=== PATIENT | male | born 1965 | race Caucasian/White ===

== ENCOUNTER 2021-05-18 13:22 | Outpatient (REF) | payer OTHER, SELFPAY ==
[2021-05-18 13:46] LABS: MANUAL DIFF FLAG NO
[2021-05-18 13:54] LABS: Basophils Percent Auto 0.3 % (0-2); Eosinophils Absolute Auto 0.2 X10*3/uL (0.0-0.4); Eosinophils Percent Auto 1.8 % (0-4); Hematocrit 42.8 % (42.0-52.0); Hemoglobin 13.9 g/dl (14.0-18.0); Imm Gran Abs Auto 0.02 X10*3/uL (0.00-0.03); Imm Gran Pct Auto 0.2 % (0.0-0.4); Lymphocytes Absolute Auto 2.6 X10*3/uL (1.2-4.9); Lymphocytes Percent Auto 30.4 % (20-40); Mean Corpuscular HGB Conc 32.5 g/dl (31.0-36.0); Mean Corpuscular Hemoglobin 29.4 pg (27.0-33.0); Mean Corpuscular Volume 90.7 fL (80.0-98.0); Mean Platelet Volume 9.9 fL (9.4-12.4); Monocytes Absolute Auto 0.7 X10*3/uL (0.1-1.2); Monocytes Percent Auto 7.9 % (2-11); Neutrophils Absolute Auto 5.1 x10*3/uL (2.0-8.3); Neutrophils Percent Auto 59.4 % (45-73); Platelet Count 259 X10*3/uL (160-400); Red Blood Count 4.72 X10*6/uL (4.60-5.80); Red Cell Distribution Width 12.9 % (11.0-16.0); White Blood Count 8.7 X10*3/uL (4.8-10.8)
[2021-05-18 14:21] LABS: Alanine Aminotransferase 41 U/L (0-40); Albumin Level 4.4 g/dL (3.5-5.0); Alkaline Phosphatase 94 U/L (39-117); Anion Gap 11 (12-20); Aspartate Amino Transferase 22 U/L (5-37); Bilirubin Total 0.3 mg/dL (0.0-1.0); Blood Urea Nitrogen 10 mg/dL (9-16); Calcium 9.3 mg/dL (8.4-10.2); Carbon Dioxide 31 mmol/L (22-29); Chloride 102 mmol/L (96-108); Estimated Glomerular Filt Rate > 60; Gamma Glutamyl Transpeptidase 36 U/L (11-51); Glucose Random 97 mg/dL (60-115); Potassium 4.1 mmol/L (3.3-5.1); Sodium 140 mmol/L (135-145); Total Protein 7.3 g/dL (6.5-8.0)
[2021-05-19 04:19] LABS: HBS Num1 1.31 mIU/mL (0-7.99); HBc Num1 0.19 S/CO (0.00-0.79); HBsAGNum1 0.22 S/CO (0.00-0.99); Hepatitis B Core Antibody Nonreactive (Nonreactive); Hepatitis B Surface Antigen Negative (Negative); ~Hepatitis B Surface Antibody NONREACTIVE (Nonreactive)
[2021-05-19 04:26] LABS: HIV AB/AG Nonreactive (Nonreactive); HIV Num 1 0.24 S/CO (0.00-0.99); ~HepC Num1 0.12 S/CO (0.00-0.79); ~Hepatitis C Antibody Nonreactive (Nonreactive)
[2021-05-20 05:06] LABS: Hepatitis A Antibody IgG Nonreactive (Nonreactive)
[2021-05-20 05:08] LABS: Hepatitis A Antibody IgM 0.17 Index (0-0.79); ~Hepatitis A Antibody IgM Nonreactive (Nonreactive)
== END 2021-05-18 13:23 | disposition home or self-care (01) ==
LOC: HO.LAB 13:22
PROVIDERS: Visit Provider Nurse Practitioner Family
DX: Z01.84 Encounter for antibody response examination (principal); Z11.4 Encounter for screening for human immunodeficiency virus [HIV]; F11.20 Opioid dependence, uncomplicated
CPT/HCPCS: 36415; 80053; 82977; 85025; 86704; 86706; 86708; 86709; 86803; 87340; 87389; 87522; 87902

== ENCOUNTER 2022-05-07 15:18 | Outpatient (REF) | payer OTHER, SELFPAY ==
[2022-05-07 16:40] LABS: Alanine Aminotransferase 28 U/L (0-40); Aspartate Amino Transferase 18 U/L (5-37); Gamma Glutamyl Transpeptidase 29 U/L (11-51)
== END 2022-05-07 15:19 | disposition home or self-care (01) ==
LOC: HO.LAB 15:18
PROVIDERS: Visit Provider Nurse Practitioner Family
DX: Z13.89 Encounter for screening for other disorder (principal)
CPT/HCPCS: 36415; 82977; 84450; 84460

== ENCOUNTER 2023-06-10 18:08 | Emergency (ER) | payer MEDICAID, SELFPAY ==
--- NOTE | 2023-06-10 18:23 | ED.GENADULT ---
HPI - General Adult General Chief complaint: Dental/Oral Stated complaint: eye swollen, sinuses? Time Seen by Provider: 06/10/23 20:41 Source: patient Mode of arrival: ambulatory Limitations: no limitations History of Present Illness HPI narrative: 57 yo male with history of substance use disorder on Suboxone who presents to the ER for evaluation of left-sided facial pain and swelling that started yesterday. Patient states he thought he was starting to get a sinus infection but woke up this morning with swelling to the left side of his face, extending up to his eye. He states he has had long-term dental issues and on all of his upper teeth extracted years ago at [facility]. She is following up with his dentist to get the rest of his lower teeth removed. He denies any fevers or chills. No trouble opening and closing his jaw. Pain improved with aspirin MD complaint: Left-sided facial swelling Onset (ago): day(s) (1) Location: face and mouth Severity: moderate Severity scale (1-10): 5 Quality: aching Pain Consistency: intermittent Relieving factors: medication Associated symptoms: headaches Treatments prior to arrival: aspirin Related Data Previous Rx's ?Medication ?Instructions ?Recorded amoxicillin 875 mg-potassium 1 tab PO BID #20 tabs 06/10/23 clavulanate 125 mg tablet chlorhexidine gluconate 0.12 % 15 ml buccal BID #118 mL 06/10/23 mouthwash (Peridex) ibuprofen 600 mg tablet 600 mg PO Q8H PRN pain #20 tabs 06/10/23 Allergies Allergy/AdvReac Type Severity Reaction Status Date / Time No Known Allergies Allergy Verified 06/10/23 18:26 Review of Systems Review of Systems: Yes all other systems are reviewed and are negative PMFSH Social History Social History Advance Directives: No Advance Directives Information Provided: No Physical Exam ED Vital Signs: Vital Signs - 24 hr 06/10/23 18:25 Temperature 98.3 F Pulse Rate 89 Respiratory Rate 18 Blood Pressure 176/80 H Pulse Oximetry 99 Oxygen Delivery Method Room Air BMI result Body Mass Index 32.0 Appearance: Alert. Oriented X3. No acute distress. Head/face: normocephalic, atraumatic. left maxillary area with moderate swelling, mild erythema extending to under the left eye. Eyes: Pupils equal, round and reactive to light. ENT: Pharynx w/ moist mucus membranes. no upper dentition. small opening/tract in the upper gums in the expected area of the 1st or 2nd molar, no fluctuance, no drainage of pus. No tonsillar swelling or exudate. Neck: Normal inspection. Neck supple. CVS: Normal heart rate and rhythm. Pulses normal. Respiratory: No respiratory distress. Breath sounds normal. Abdomen: Soft and nontender. +BS x4 Skin: Skin warm and dry. Normal skin color. Normal skin turgor. No rashes. Extremities: No lower extremity edema. No joint swelling. Neuro/psych: Oriented X 3. No motor deficit. No sensory deficit. CN II-XII intact. Normal speech and cognition. Course Course Course Narrative: This is an RME: Additional HPI, ROS, PE not included below will be deferred to primary provider. 57 yo male presents with left sided facial swelling, eye swelling, dental pain X 2 days. Denies recent sickness, fevers, chills, cp, nausea, vomiting. Denies recent dental work. PE- speaking in full sentences, controlling secretions well Medical Decision Making Medical Decision Making [facility] Narrative: 57-year-old male presenting to the ER for evaluation of left-sided facial pain and swelling that started yesterday. He has evidence of dental abscess, nothing to drain on examination. He has not diabetic. His pain is manageable after aspirin. He has no trismus. Lab workup today shows white blood cell count of 11.9. He has not tachycardic or febrile. We discussed the diagnosis of dental abscess, the importance of initiation of antibiotics and close monitoring. We also discussed the complications and need for possible surgical intervention. Patient would like to get started on oral antibiotics with close outpatient follow-up. Will defer CT scan and IV antibiotics for now, give a trial of oral antibiotics and have the patient closely follow-up. Will return if he has any new or worsening symptoms. Comfortable discharge home. Dr. Bolaños assess the patient at the bedside and is in agreement with PO abx and discharge. Differential Diagnosis Differential Diagnoses: The differential diagnosis associated with the presentation includes Dental abscess, toothache, cellulitis, preseptal cellulitis, periorbital cellulitis Admission/Observation Consideration of admission/observation: Escalation of care including admission/observation considered Lab Data [facility] Lab Attestation statement: I reviewed the patient's lab results. Mild leukocytosis, mild hyperglycemia 06/10/23 18:31 06/10/23 18:31 Labs: Lab Results 06/10/23 Range/Units 18:31 WBC 11.9 H (4.8-10.8) X10*3/uL RBC 4.76 (4.60-5.80) X10*6/uL Hgb 14.2 (14.0-18.0) g/dl Hct 42.0 (42.0-52.0) % MCV 88.2 (80.0-98.0) fL MCH 29.8 (27.0-33.0) pg MCHC 33.8 (31.0-36.0) g/dl RDW 12.7 (11.0-16.0) % Plt Count 227 (160-400) X10*3/uL MPV 10.2 (9.4-12.4) fL Immature Gran % (Auto) 0.4 (0.0-0.4) % Neut % (Auto) 59.5 (45-73) % Lymph % (Auto) 29.2 (20-40) % [place] % (Auto) 8.5 (2-11) % Eos % (Auto) 1.9 (0-4) % Baso % (Auto) 0.5 (0-2) % Lymph # (Auto) 3.5 (1.2-4.9) X10*3/uL [place] # (Auto) 1.0 (0.1-1.2) X10*3/uL Eos # (Auto) 0.2 (0.0-0.4) X10*3/uL Baso # (Auto) 0.1 (0.0-0.2) X10*3/uL Abs Immat Gran (auto) 0.05 H (0.00-0.03) X10*3/uL Absolute Neuts (auto) 7.1 (2.0-8.3) x10*3/uL Absolute Nucleated RBC 0.000 (0.0-0.012) X10*3/uL Nucleated RBC % (auto) 0.0 (0.0-0.2) /100WBC ESR 11 (0-15) MM/HR Sodium 139 (135-145) mmol/L Potassium 4.6 (3.3-5.1) mmol/L Chloride 104 (96-108) mmol/L Carbon Dioxide 29 (22-29) mmol/L Anion Gap 11 L (12-20) BUN 9 (9-16) mg/dL Creatinine 0.90 (0.5-1.4) mg/dL Estim Creat Clear Calc 103.8 Estimated GFR > 60 Random Glucose 163 H (60-115) mg/dL Calcium 9.2 (8.4-10.2) mg/dL Total Bilirubin 0.3 (0.0-1.0) mg/dL AST 20 (5-37) U/L ALT 41 H (0-40) U/L Alkaline Phosphatase 101 (39-117) U/L C-Reactive Protein 1.15 H (< or = 0.50) mg/dL Total Protein 7.4 (6.5-8.0) g/dL Albumin 4.3 (3.5-5.0) g/dL External Record Review External record reviewed: Prior outpatient labs Tests considered The following testing was considered but not selected: Considered CT scan of the face to assess for dental abscess however this was deferred today Prescription Management I considered prescription management with: Pain Medication and Antibiotic Chronic Conditions Patient?s care impacted by: Other (Substance use disorder on Suboxone) Critical Care Time Critical Care Time Critical Care Time: No Discharge Plan Discharge Clinical Impression: Dental abscess Patient Disposition: Home, Self-Care Instructions: Dental Abscess (ED) Additional Instructions: Take the prescribed antibiotics as directed, complete the entire course and do not miss any doses Use warm compresses to the area Take the prescribed anti-inflammatory pain medication as needed for pain and swelling Follow up with your dentist as soon as possible If you develop new or worsening symptoms call 911 or come back to the ER for further evaluation. Prescriptions: New amoxicillin-pot clavulanate 875-125 mg tablet 1 tab PO BID Qty: 20 0RF ibuprofen 600 mg tablet 600 mg PO Q8H PRN (Reason: pain) Qty: 20 0RF chlorhexidine gluconate [Peridex] 0.12 % mouthwash 15 ml buccal BID Qty: 118 0RF Print Language: Faroese
[2023-06-10 18:25] VITALS: BP 176/80; PULSE 89; RESP 18; TEMP 36.8; O2SAT 99; BMI 32.0
[2023-06-10 18:36] LABS: MANUAL DIFF FLAG NO
[2023-06-10 18:46] LABS: Basophils Absolute Auto 0.1 X10*3/uL (0.0-0.2); Basophils Percent Auto 0.5 % (0-2); Eosinophils Absolute Auto 0.2 X10*3/uL (0.0-0.4); Eosinophils Percent Auto 1.9 % (0-4); Hemoglobin 14.2 g/dl (14.0-18.0); Imm Gran Abs Auto 0.05 X10*3/uL (0.00-0.03); Imm Gran Pct Auto 0.4 % (0.0-0.4); Lymphocytes Absolute Auto 3.5 X10*3/uL (1.2-4.9); Lymphocytes Percent Auto 29.2 % (20-40); Mean Corpuscular HGB Conc 33.8 g/dl (31.0-36.0); Mean Corpuscular Hemoglobin 29.8 pg (27.0-33.0); Mean Corpuscular Volume 88.2 fL (80.0-98.0); Mean Platelet Volume 10.2 fL (9.4-12.4); Monocytes Percent Auto 8.5 % (2-11); Neutrophils Absolute Auto 7.1 x10*3/uL (2.0-8.3); Neutrophils Percent Auto 59.5 % (45-73); Platelet Count 227 X10*3/uL (160-400); Red Blood Count 4.76 X10*6/uL (4.60-5.80); Red Cell Distribution Width 12.7 % (11.0-16.0); White Blood Count 11.9 X10*3/uL (4.8-10.8)
[2023-06-10 18:52] LABS: Alanine Aminotransferase 41 U/L (0-40); Albumin Level 4.3 g/dL (3.5-5.0); Alkaline Phosphatase 101 U/L (39-117); Anion Gap 11 (12-20); Aspartate Amino Transferase 20 U/L (5-37); Bilirubin Total 0.3 mg/dL (0.0-1.0); Blood Urea Nitrogen 9 mg/dL (9-16); C Reactive Protein 1.15 mg/dL (< or = 0.50); Calcium 9.2 mg/dL (8.4-10.2); Carbon Dioxide 29 mmol/L (22-29); Chloride 104 mmol/L (96-108); Creatinine Clr Calc Pharmacy 103.8; Estimated Glomerular Filt Rate > 60; Glucose Random 163 mg/dL (60-115); Potassium 4.6 mmol/L (3.3-5.1); Sodium 139 mmol/L (135-145); Total Protein 7.4 g/dL (6.5-8.0)
[2023-06-10 19:26] LABS: Erythrocyte Sedimentation Rate 11 MM/HR (0-15)
[2023-06-10] MEDS: Acetaminophen 325 MG TABLET 975 MG PO (21:48)
[2023-06-10] MEDS: Ibuprofen 600 MG TABLET PO (21:49)
[2023-06-10] MEDS: Amoxicillin/Potassium Clav 875 MG TABLET PO (21:49)
[2023-06-10 22:06] VITALS: BP 110/99; PULSE 77; RESP 16; TEMP 37; O2SAT 99
== END 2023-06-10 22:09 | disposition home or self-care (01) ==
PROVIDERS: Physician Assistant; Emergency Provider Emergency Medicine Emergency Medical Services
DX: K04.7 Periapical abscess without sinus (principal); F11.20 Opioid dependence, uncomplicated
CPT/HCPCS: 36415; 80053; 85025; 85652; 86140; 99283

== ENCOUNTER 2023-08-23 16:12 | Emergency (ER) | payer MEDICAID, SELFPAY ==
[2023-08-23 17:05] VITALS: BP 165/80; PULSE 80; RESP 18; TEMP 36.1; O2SAT 98; BMI 31.3
--- NOTE | 2023-08-23 17:08 | ED.GENADULT ---
HPI - General Adult General Chief complaint: Skin/Abscess/Foreign Body Stated complaint: rash on hands and forearms Time Seen by Provider: 08/23/23 17:18 Source: patient Mode of arrival: ambulatory Limitations: no limitations History of Present Illness ED Provider: roosevelt DUONG narrative: Patient is a 58-year-old male presenting to the ED with complaint of pruritic rash to bilateral hands for the past 2-3 weeks. Reports history of similar symptoms in the past approximately 2-3 times over the past 7 years. States symptoms typically occur in the summer, seem to get worse in the sun/with heat. Has had good improvement in the past with PO prednisone. 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 Denies any new medications or recent medication changes. Has tried OTC Jergens lotion with little change. Denies any shortness of breath or difficulty breathing, swelling to lips, tongue, throat. MD complaint: rash Onset (ago): week(s) Location: left, right and upper extremity Associated symptoms: denies other symptoms Treatments prior to arrival: other Related Data Previous Rx's ?Medication ?Instructions ?Recorded amoxicillin 875 mg-potassium 1 tab PO BID #20 tabs 06/10/23 clavulanate 125 mg tablet chlorhexidine gluconate 0.12 % 15 ml buccal BID #118 mL 06/10/23 mouthwash (Peridex) ibuprofen 600 mg tablet 600 mg PO Q8H PRN pain #20 tabs 06/10/23 prednisone 20 mg tablet See Rx Instructions .Route 08/23/23 .COMPLEX #18 tabs Allergies Allergy/AdvReac Type Severity Reaction Status Date / Time No Known Allergies Allergy Verified 08/23/23 17:13 Review of Systems Review of Systems: As per HPI. Yes all other systems are reviewed and are negative Constitutional: Constitutional: Reports as per HPI PMF Social History Social History Advance Directives: No Advance Directives Information Provided: No Do you have a plan to hurt others: No Plan Physical Exam ED Vital Signs: Vital Signs - 24 hr 08/23/23 17:05 08/23/23 17:25 Temperature 97 F 97 F Pulse Rate 80 80 Respiratory Rate 18 18 Blood Pressure 165/80 H 165/80 H Pulse Oximetry 98 98 Oxygen Delivery Method Room Air Room Air BMI result Body Mass Index 31.3 Vital signs have been reviewed and appear to be correct. Blood pressure elevated. Heart rate normal. Respiratory rate normal. Temperature normal. Oxygen saturation normal. Const General: cooperative, healthy appearing and no acute distress Orientation/consciousness: oriented to person, oriented to place, oriented to time and patient oriented x3 Limitations: no limitations HENMT Head: Yes normocephalic and Yes atraumatic Ears: external ears normal General nose exam: Normal external nose present Face and sinus: Yes face symmetric Mouth: Normal oral and palatal mucosa present, lip normal, tongue normal, oropharynx normal, moist mucous membranes, no audible dysphonia and no drooling Throat: Yes uvula midline and No uvular edema Eyes Pupils: Equal, round and reactive pupils present Neck Neck: Yes normal visual inspection and Yes supple Resp Effort & Inspection: normal respiratory effort and able to speak in complete sentences Auscultation: clear to auscultation bilaterally Cardio Rate: regular rate Rhythm: regular rhythm Heart sounds: S1 normal heart sound present and S2 normal heart sound present GI Palpation (GI): Soft to palpation and nontender Auscultation: normoactive bowel sounds General: Yes no CVA tenderness Back/Spine/Pelvis Back: no CVA tenderness Skin General skin exam: elasticity normal and turgor normal Rashes: rashes noted (erythema and excoriation to dorsal hands with mild swelling, no discharge) bilateral hand surface blanching and erythematous Neuro General: oriented to person, oriented to place, oriented to time, patient oriented x3, moves all extremities, no focal motor deficits and CN's II-XI intact bilaterally Cranial nerves: Yes Equal, round and reactive pupils present Cognition (Neuro): normal cognition Extrem General: Yes full ROM, Yes no pedal edema and Yes no calf tenderness Psych Mental Status: mental status grossly normal Affect: normal affect Thought process: Normal thought process present Medical Decision Making Medical Decision Making MDM Narrative: Patient is a 58-year-old male presenting to the ED with complaint of pruritic rash to bilateral hands for the past 2-3 weeks. On exam patient is awake, A+Ox3, BP elevated, VS otherwise WNL, afebrile, normal neurological exam without focal deficits, physical exam findings as above. Given reported symptoms and physical exam findings, initial differential includes atopic dermatitis, contact dermatitis, psoriasis. Do not suspect TEN/SJS, DRESS, TTP/DIC, necrotizing fasciitis, meningococcemia, SSSS, TSS, anaphylaxis. Will treat with taper course of prednisone, advised topical emollient cream, daily antihistamine. Will refer to dermatology for ongoing symptoms. Return precautions discussed. Patient verbalized understanding of and agreement with plan. Differential Diagnosis Differential Diagnoses: The differential diagnosis associated with the presentation includes as per [facility] External Record Review External record reviewed: Inpatient record, Office record and Outpatient record Prescription Management I considered prescription management with: Other Discharge Plan Discharge Clinical Impression: Atopic dermatitis of both hands Patient Disposition: Home, Self-Care Instructions: Eczema (ED), Dermatitis (ED) Additional Instructions: You were evaluated in the emergency department today for a rash to your hands. You are being treated with a course of steroids to decrease inflammation. We also recommend taking a daily antihistamine such as cetirizine (Zyrtec) or loratadine (Claritin). You should use an unscented thick emollient hand cream such as Vanicream or Eucerine several times daily, and cover hands with cotton gloves after applying lotion if possible. Follow up with your primary care provider. Return to the emergency department if the rash continues spreading, you develop fever, thick yellow discharge, or have any other concerning symptoms. Prescriptions: New prednisone 20 mg tablet See Rx Instructions .ROUTE .COMPLEX Qty: 18 0RF Rx Instructions: 60mg (3 tabs) daily for 3 days, then 40mg (2 tabs) daily for 3 days, then 20mg (1 tab) daily for 3 days No Action amoxicillin-pot clavulanate 875-125 mg tablet 1 tab PO BID Qty: 20 0RF ibuprofen 600 mg tablet 600 mg PO Q8H PRN (Reason: pain) Qty: 20 0RF chlorhexidine gluconate [Peridex] 0.12 % mouthwash 15 ml buccal BID Qty: 118 0RF Referrals: [facility] [Provider Group] [facility] [Provider Group] [facility] [Provider Group] Interventions: ED Discharge Assessment Last Done: 08/23/23 17:25 Discharge Date/Time: 08/23/23 17:26 Print Language: Slovenian
[2023-08-23 17:25] VITALS: BP 165/80; PULSE 80; RESP 18; TEMP 36.1; O2SAT 98
== END 2023-08-23 17:26 | disposition home or self-care (01) ==
PROVIDERS: Emergency Provider Internal Medicine
DX: L20.9 Atopic dermatitis, unspecified (principal); R21 Rash and other nonspecific skin eruption
CPT/HCPCS: 99282; 99283

== ENCOUNTER 2023-09-11 12:13 | Emergency (ER) | payer MEDICAID, SELFPAY ==
[2023-09-11 12:13] VITALS: BP 169/85; PULSE 116; RESP 18; TEMP 36.5; O2SAT 97; BMI 30.8
--- NOTE | 2023-09-11 12:24 | ED.GENADULT ---
HPI - General Adult General Chief complaint: Skin/Abscess/Foreign Body Stated complaint: rash Time Seen by Provider: 09/11/23 12:23 Source: patient Mode of arrival: ambulatory Limitations: no limitations History of Present Illness ED Provider: Kris DUONG narrative: Patient is a 58-year-old male presenting to the emergency department with complaint of worsening rash. He was seen in this ED on 08/22 and treated with tapering course of prednisone. He states his symptoms did not resolve, and went to urgent care on Tuesday where he was prescribed keflex, augmentin, additional prednisone and an antihistamine. He reports that his rash was beginning to improve on Tuesday. Then he washed his clothing and bedding with Tide detergent which he has never used before. He then developed a new area of rash to his chest/abdomen and face as well as papules to his arms. He reports that the rash is not pruritic. Denies any swelling to lips, tongue, or throat and denies difficulty breathing or wheezing. Denies recent cough or fevers. Denies abdominal pain, nausea or vomiting. MD complaint: rash Onset (ago): week(s) Location: face, chest, abdomen, pelvis and upper extremity Associated symptoms: denies other symptoms Treatments prior to arrival: other Related Data Previous Rx's ?Medication ?Instructions ?Recorded amoxicillin 875 mg-potassium 1 tab PO BID #20 tabs 06/10/23 clavulanate 125 mg tablet chlorhexidine gluconate 0.12 % 15 ml buccal BID #118 mL 06/10/23 mouthwash (Peridex) ibuprofen 600 mg tablet 600 mg PO Q8H PRN pain #20 tabs 06/10/23 prednisone 20 mg tablet See Rx Instructions .Route 08/23/23 .COMPLEX #18 tabs cetirizine 10 mg tablet 10 mg PO BID rash #60 tabs 09/11/23 doxycycline hyclate 100 mg capsule 100 mg PO BID #14 caps 09/11/23 famotidine 20 mg tablet 20 mg PO BID #14 tabs 09/11/23 prednisone 20 mg tablet See Rx Instructions .Route 09/11/23 .COMPLEX #18 tabs Allergies Allergy/AdvReac Type Severity Reaction Status Date / Time No Known Allergies Allergy Verified 09/11/23 12:18 Review of Systems Review of Systems: Yes all other systems are reviewed and are negative Constitutional: Constitutional: Reports as per [facility] Social History Social History Advance Directives: No Advance Directives Information Provided: No Do you have a plan to hurt others: No Plan Physical Exam ED Vital Signs: Vital Signs - 24 hr 09/11/23 12:13 Temperature 97.7 F Pulse Rate 116 H Respiratory Rate 18 Blood Pressure 169/85 H Pulse Oximetry 97 Oxygen Delivery Method Room Air BMI result Body Mass Index 30.8 Vital signs have been reviewed and appear to be correct. Blood pressure elevated. Heart rate mildly tachycardic. Respiratory rate normal. Temperature normal. Oxygen saturation normal. Const General: cooperative, healthy appearing and no acute distress Orientation/consciousness: oriented to person, oriented to place, oriented to time and patient oriented x3 Limitations: no limitations HENMT Head: Yes normocephalic and Yes atraumatic Ears: external ears normal General nose exam: Normal external nose present Face and sinus: No edema Mouth: Normal oral and palatal mucosa present, lip normal, tongue normal, oropharynx normal and moist mucous membranes Throat: Yes uvula midline Eyes Pupils: Equal, round and reactive pupils present Neck Neck: Yes normal visual inspection and Yes supple Resp Effort & Inspection: normal respiratory effort and able to speak in complete sentences Auscultation: clear to auscultation bilaterally Cardio Rate: regular rate Rhythm: regular rhythm Heart sounds: S1 normal heart sound present and S2 normal heart sound present GI Palpation (GI): Soft to palpation and nontender Auscultation: normoactive bowel sounds General: Yes no CVA tenderness Back/Spine/Pelvis Back: no CVA tenderness Skin Other: erythematous macules to chest/abdomen, erythema to perioral area; blanchable erythema to forearms with erythematous papules, no drainage General skin exam: elasticity normal and turgor normal Neuro General: oriented to person, oriented to place, oriented to time, patient oriented x3, moves all extremities, no focal motor deficits and CN's II-XI intact bilaterally Cranial nerves: Yes Equal, round and reactive pupils present Cognition (Neuro): normal cognition Extrem General: Yes full ROM, Yes no pedal edema and Yes no calf tenderness Psych Mental Status: mental status grossly normal Affect: normal affect Thought process: Normal thought process present Medical Decision Making Medical Decision Making MDM Narrative: Patient is a 58-year-old male presenting to the emergency department with complaint of worsening rash. On exam patient is awake, A+Ox3, VS WNL, afebrile, normal neurological exam without focal deficits, physical exam findings as above. Given reported symptoms and physical exam findings, initial differential includes contact dermatitis, atopic dermatitis. Given ongoing nature, unlikely related to viral illness. Possible allergy to isoproyl alcohol used at job. Recent worsening likely due to using Tide detergent. Denies recent NSAID use. No red flag findings concerning for TEN/SJS, DRESS, TTP/DIC, necrotizing fasciitis, meningococcemia, SSSS, TSS, anaphylaxis. Labs notable for leukocytosis likely due to multiple recent courses of prednisone. No eosinophilia. Slight elevation of ALT, history of same. Case discussed with attending MD, Dr. Bhat, who agrees with plan to discontinue augmentin, add doxycycline, continue prednisone taper, increase cetirizine to BID, and add famotidine. Will refer to chlorination operator again for further evaluation. Return precautions discussed with patient at bedside. Patient verbalized understanding of and agreement with plan. Differential Diagnosis Differential Diagnoses: The differential diagnosis associated with the presentation includes As per [facility] Lab Data [facility] Lab Attestation statement: I reviewed the patient's lab results. As per [facility] 09/11/23 13:30 09/11/23 13:30 Labs: Lab Results 09/11/23 Range/Units 13:30 WBC 16.3 H (4.8-10.8) X10*3/uL RBC 4.93 (4.60-5.80) X10*6/uL Hgb 15.4 (14.0-18.0) g/dl Hct 43.3 (42.0-52.0) % MCV 87.8 (80.0-98.0) fL MCH 31.2 (27.0-33.0) pg MCHC 35.6 (31.0-36.0) g/dl RDW 13.2 (11.0-16.0) % Plt Count 293 D (160-400) X10*3/uL MPV 9.5 (9.4-12.4) fL Immature Gran % (Auto) 1.2 H (0.0-0.4) % Neut % (Auto) 86.7 H (45-73) % Lymph % (Auto) 7.6 L (20-40) % [place] % (Auto) 4.2 (2-11) % Eos % (Auto) 0.2 (0-4) % Baso % (Auto) 0.1 (0-2) % Lymph # (Auto) 1.2 (1.2-4.9) X10*3/uL [place] # (Auto) 0.7 (0.1-1.2) X10*3/uL Eos # (Auto) 0.0 (0.0-0.4) X10*3/uL Baso # (Auto) 0.0 (0.0-0.2) X10*3/uL Abs Immat Gran (auto) 0.19 H (0.00-0.03) X10*3/uL Absolute Neuts (auto) 14.1 H (2.0-8.3) x10*3/uL Absolute Nucleated RBC 0.000 (0.0-0.012) X10*3/uL Nucleated RBC % (auto) 0.0 (0.0-0.2) /100WBC Sodium 135 (135-145) mmol/L Potassium 4.3 (3.3-5.1) mmol/L Chloride 99 (96-108) mmol/L Carbon Dioxide 25 (22-29) mmol/L Anion Gap 15 (12-20) BUN 15 (9-16) mg/dL Creatinine 0.89 (0.5-1.4) mg/dL Estim Creat Clear Calc 101.9 Estimated GFR > 60 Random Glucose 175 H (60-115) mg/dL Calcium 9.5 (8.4-10.2) mg/dL Total Bilirubin 0.3 (0.0-1.0) mg/dL AST 23 (5-37) U/L ALT 94 H (0-40) U/L Alkaline Phosphatase 86 (39-117) U/L Total Protein 7.1 (6.5-8.0) g/dL Albumin 4.1 (3.5-5.0) g/dL External Record Review External record reviewed: Inpatient record, Office record and Outpatient record Prescription Management I considered prescription management with: Antibiotic and Other Discharge Plan Discharge Clinical Impression: Contact dermatitis, Urticaria Patient Disposition: Home, Self-Care Instructions: Contact Dermatitis (DC), Urticaria (ED), Acute Rash (ED) Additional Instructions: You were evaluated in the emergency department today for a worsening rash. Some of your symptoms are likely due to using Tide detergent. We recommend that you rewash all of your clothes and bedding with an unscented detergent as soon as possible. 1.) Stop taking the Augmentin (amoxicillin-potassium clavulanate) 2.) Start taking the newly prescribed doxycycline. This medication will make your skin more sensitive in the sun. Wear pants and long sleeves when outdoors as well as sunscreen. 3.) Continue the newly prescribed prednisone. 4.) Take the prescribed cetirizine twice daily as prescribed. Do not take Benadryl while taking this medication. 5.) You are also being prescribed famotidine which is a different type of histamine katie. Take this as prescribed. 6.) Continue to use an unscented lotion such as Eucerine or Vanicream. 7.) Call the chlorination operator in the morning to schedule a follow up appointment. 8.) Return if you develop fever, chills, body aches, worsening rash, rash inside your mouth, or any other concerning symptoms. Prescriptions: New doxycycline hyclate 100 mg capsule 100 mg PO BID Qty: 14 0RF prednisone 20 mg tablet See Rx Instructions .ROUTE .COMPLEX Qty: 18 0RF Rx Instructions: 60mg (3 tabs) x 3 days, then 40mg (2 tabs) x 3 days, then 20mg (1 tab) x 3 days cetirizine 10 mg tablet 10 mg PO BID Qty: 60 0RF famotidine 20 mg tablet 20 mg PO BID Qty: 14 0RF No Action amoxicillin-pot clavulanate 875-125 mg tablet 1 tab PO BID Qty: 20 0RF ibuprofen 600 mg tablet 600 mg PO Q8H PRN (Reason: pain) Qty: 20 0RF chlorhexidine gluconate [Peridex] 0.12 % mouthwash 15 ml buccal BID Qty: 118 0RF prednisone 20 mg tablet See Rx Instructions .ROUTE .COMPLEX Qty: 18 0RF Rx Instructions: 60mg (3 tabs) daily for 3 days, then 40mg (2 tabs) daily for 3 days, then 20mg (1 tab) daily for 3 days Referrals: [facility] [Provider Group] [facility] [Provider Group] Stand Alone Forms: Work/School Release Print Language: [place]
[2023-09-11 13:35] LABS: MANUAL DIFF FLAG NO
[2023-09-11 13:36] LABS: Basophils Percent Auto 0.1 % (0-2); Eosinophils Percent Auto 0.2 % (0-4); Hematocrit 43.3 % (42.0-52.0); Hemoglobin 15.4 g/dl (14.0-18.0); Imm Gran Abs Auto 0.19 X10*3/uL (0.00-0.03); Imm Gran Pct Auto 1.2 % (0.0-0.4); Lymphocytes Absolute Auto 1.2 X10*3/uL (1.2-4.9); Lymphocytes Percent Auto 7.6 % (20-40); Mean Corpuscular HGB Conc 35.6 g/dl (31.0-36.0); Mean Corpuscular Hemoglobin 31.2 pg (27.0-33.0); Mean Corpuscular Volume 87.8 fL (80.0-98.0); Mean Platelet Volume 9.5 fL (9.4-12.4); Monocytes Absolute Auto 0.7 X10*3/uL (0.1-1.2); Monocytes Percent Auto 4.2 % (2-11); Neutrophils Absolute Auto 14.1 x10*3/uL (2.0-8.3); Neutrophils Percent Auto 86.7 % (45-73); Platelet Count 293 X10*3/uL (160-400); Red Blood Count 4.93 X10*6/uL (4.60-5.80); Red Cell Distribution Width 13.2 % (11.0-16.0); White Blood Count 16.3 X10*3/uL (4.8-10.8)
[2023-09-11 13:49] LABS: Alanine Aminotransferase 94 U/L (0-40); Albumin Level 4.1 g/dL (3.5-5.0); Alkaline Phosphatase 86 U/L (39-117); Anion Gap 15 (12-20); Aspartate Amino Transferase 23 U/L (5-37); Bilirubin Total 0.3 mg/dL (0.0-1.0); Blood Urea Nitrogen 15 mg/dL (9-16); Calcium 9.5 mg/dL (8.4-10.2); Carbon Dioxide 25 mmol/L (22-29); Chloride 99 mmol/L (96-108); Creatinine Clr Calc Pharmacy 101.9; Estimated Glomerular Filt Rate > 60; Glucose Random 175 mg/dL (60-115); Potassium 4.3 mmol/L (3.3-5.1); Sodium 135 mmol/L (135-145); Total Protein 7.1 g/dL (6.5-8.0)
[2023-09-11 15:42] VITALS: BP 154/85; PULSE 82; RESP 16; TEMP 36.7; O2SAT 97
== END 2023-09-11 15:43 | disposition home or self-care (01) ==
PROVIDERS: Registered Nurse Emergency; Emergency Provider Emergency Medicine
DX: L50.0 Allergic urticaria (principal); L25.9 Unspecified contact dermatitis, unspecified cause; Z79.899 Other long term (current) drug therapy
CPT/HCPCS: 36415; 80053; 85025; 99282

== ENCOUNTER 2023-09-18 14:00 | Emergency (ER) | payer OTHER, SELFPAY ==
[2023-09-18 14:21] VITALS: BP 167/96; PULSE 101; RESP 22; TEMP 37.2; O2SAT 99; BMI 30.8
--- NOTE | 2023-09-18 14:46 | ED_ITS ---
HPI - General Adult General Chief complaint: Skin/Abscess/Foreign Body Stated complaint: RASH Time Seen by Provider: 09/18/23 14:38 History of Present Illness ED Provider: Tyrel Christensen PA-C HPI narrative: 58 yold male with pmh of contact dermaitis presents to the ED recurrent itchy rash. Patient was seen in the ED twice for the same rash. Patient states no fever, peeling rash, lip swelling, tongue swelling, change in voice, chest pain, trauma, blisters, bites, or bluish black discloration. Related Data Previous Rx's ?Medication ?Instructions ?Recorded amoxicillin 875 mg-potassium 1 tab PO BID #20 tabs 06/10/23 clavulanate 125 mg tablet chlorhexidine gluconate 0.12 % 15 ml buccal BID #118 mL 06/10/23 mouthwash (Peridex) ibuprofen 600 mg tablet 600 mg PO Q8H PRN pain #20 tabs 06/10/23 prednisone 20 mg tablet See Rx Instructions .Route 08/23/23 .COMPLEX #18 tabs cetirizine 10 mg tablet 10 mg PO BID rash #60 tabs 09/11/23 doxycycline hyclate 100 mg capsule 100 mg PO BID #14 caps 09/11/23 famotidine 20 mg tablet 20 mg PO BID #14 tabs 09/11/23 prednisone 20 mg tablet See Rx Instructions .Route 09/11/23 .COMPLEX #18 tabs triamcinolone acetonide 0.1 % 1 appl topical BID 2 weeks #80 09/18/23 topical cream grams Allergies Allergy/AdvReac Type Severity Reaction Status Date / Time No Known Allergies Allergy Verified 09/18/23 14:25 Review of Systems 2 Review of Systems: worsening rash Yes all other systems are reviewed and are negative PMFSH Social History Social History Advance Directives: No Advance Directives Information Provided: No Do you have a plan to hurt others: No Plan Physical Exam ED Vital Signs: Vital Signs - 24 hr 09/18/23 14:21 09/18/23 15:01 Temperature 98.9 F 98.9 F Pulse Rate 101 H 101 H Respiratory Rate 22 H 22 H Blood Pressure 167/96 H 167/96 H Pulse Oximetry 99 99 Oxygen Delivery Method Room Air Room Air BMI result Body Mass Index 30.8 Const General: cooperative, healthy appearing, comfortable, no acute distress, well developed, alert and awake Orientation/consciousness: oriented to person, oriented to place, oriented to time and patient oriented x3 HENME Other: negative for facial/lip/tongue/uvula swelling. Head: Yes normal to inspection, Yes No palpable skull fracture present, Yes normocephalic and Yes atraumatic Eyes General: appearance normal, both eyes and all related structures Neck Neck: Yes no meningeal signs Chest Chest palpation & inspection: normal inspection of the chest and normal palpation of entire chest wall Resp Effort & Inspection: normal respiratory effort and able to speak in complete sentences Auscultation: clear to auscultation bilaterally Cardio Jugular venous distension: no JVD Heart sounds: S1 normal heart sound present and S2 normal heart sound present GI Inspection: Yes normal to inspection Palpation (GI): Soft to palpation, not firm, nontender, no guarding and not rigid General: Yes no CVA tenderness Back/Spine/Pelvis Back: no CVA tenderness and No back tenderness Skin Full body images: 2 1. Positive for Uticaria rash. 2. Positive for Uticaria rash. 3. Positive for Uticaria rash. 4. Positive for Uticaria rash. 5. Positive for Uticaria rash. Neuro General: oriented to person, oriented to place, oriented to time, patient oriented x3, gait normal, tone normal, moves all extremities, Normal light touch and pain sensation, no meningeal signs, no focal motor deficits, CN's II-XI intact bilaterally and normal sensation to monofilament Extrem General: Yes normal to inspection, Yes full ROM and Yes capillary refill normal Psych Appearance: grossly normal, well kempt and not disheveled Medical Decision Making Medical Decision Making MDM Narrative: 58-year-old male presents to ED for recurrent itchy rash. Patient was seen here twice for rash. Patient states rashes occurred since changing his detergent. Patient states steroid cream triamcinolone helps and would like to be prescribed medication. Patient states no fever, chills, peeling of skin. Presently not suspecting cellulitis, Emiliano Fran syndrome, anaphylaxis, thrombocytopenia, ITP, MRSA, or sepsis. Patient explained worrisome signs and informed to return to the given information for [facility] for follow-up. Differintal include uticaria rash on or dermatitis rash. Patient requesting triamcinolone cream. Patient states this has helped in the past. Differential Diagnosis Differential Diagnoses: The differential diagnosis associated with the presentation includes (Dermataitis, allergic reaction) Admission/Observation Consideration of admission/observation: Escalation of care including admission/observation considered Independent Historian Clinical information obtained from an independent historian. History obtained from or confirmed by: Other (patient) External Record Review External record reviewed: Other (prior visits) Prescription Management I considered prescription management with: Other (Steroid cream) Discharge Plan Discharge Clinical Impression: Contact dermatitis Patient Disposition: Home, Self-Care Instructions: Contact Dermatitis (ED) Additional Instructions: Recommend follow-up with [facility] in [place] [phone]. [address], [place] [address]. [email or web address], [email or web address] You can make an appointment on the website. They have availability for this week. Return to the ED immediately for any swelling of lips, chest pain, shortness of breath, weakness, dizziness, peeling of skin, swelling of tongue, sensation of throat closing, or any other concerning symptoms. Prescriptions: New triamcinolone acetonide 0.1 % cream 1 appl topical BID 14 Days Qty: 80 0RF No Action amoxicillin-pot clavulanate 875-125 mg tablet 1 tab PO BID Qty: 20 0RF ibuprofen 600 mg tablet 600 mg PO Q8H PRN (Reason: pain) Qty: 20 0RF chlorhexidine gluconate [Peridex] 0.12 % mouthwash 15 ml buccal BID Qty: 118 0RF doxycycline hyclate 100 mg capsule 100 mg PO BID Qty: 14 0RF prednisone 20 mg tablet See Rx Instructions .ROUTE .COMPLEX Qty: 18 0RF Rx Instructions: 60mg (3 tabs) x 3 days, then 40mg (2 tabs) x 3 days, then 20mg (1 tab) x 3 days cetirizine 10 mg tablet 10 mg PO BID Qty: 60 0RF famotidine 20 mg tablet 20 mg PO BID Qty: 14 0RF prednisone 20 mg tablet See Rx Instructions .ROUTE .COMPLEX Qty: 18 0RF Rx Instructions: 60mg (3 tabs) daily for 3 days, then 40mg (2 tabs) daily for 3 days, then 20mg (1 tab) daily for 3 days Stand Alone Forms: Work/School Release Interventions: ED Discharge Assessment Last Done: 09/18/23 15:01 Discharge Date/Time: 09/18/23 15:02 Print Language: Hebrew
[2023-09-18 15:01] VITALS: BP 167/96; PULSE 101; RESP 22; TEMP 37.2; O2SAT 99
== END 2023-09-18 15:02 | disposition home or self-care (01) ==
PROVIDERS: Emergency Provider Emergency Medicine
DX: L25.9 Unspecified contact dermatitis, unspecified cause (principal)
CPT/HCPCS: 99282

== ENCOUNTER 2023-09-27 11:32 | Outpatient (AMB) | payer OTHER, SELFPAY ==
--- NOTE | 2023-09-27 12:00 | MHC.OFFWIV ---
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 Started 2 weeks ago when changed laundry detergent Patient Tobacco Use Status: Current everyday Tobacco user Allergies Tide Detergent Allergy (Intermediate, Uncoded 09/27/23 12:46) Rash Medication List - Last Reconciled 09/27/23 by Andres Pennington MD buprenorphine-naloxone 8-2 mg (Suboxone) 1 film sublingual BID bupropion HCl XL 150 mg PO DAILY cetirizine 10 mg PO BID PRN diphenhydramine HCl (Banophen) 50 mg PO BEDTIME PRN ibuprofen 600 mg PO Q8H PRN triamcinolone acetonide 0.1% appl topical Do you need a note to return to daycare/school/sports/work: No HPI BODY AND FRAME TECHNICIAN Rash HPI Details 58-year-old male presents to the office for a sick visit. He would like to have his rash examined. Symptoms started after being out in the sun while playing golf. He has been to the urgent care twice and the emergency room once. Patient has received several dosages of prednisone and steroid cream. The itching and discomfort has subsided. However, the rash seems to be persisting. PFSH Social History Patient Tobacco Use Status: Current everyday Tobacco user Physical Exam Vital Signs: Last Vital Signs Temp 98.2 F 09/27/23 12:02 Pulse 88 09/27/23 12:02 BP 178/92 H 09/27/23 12:02 Pulse Ox 98 09/27/23 12:02 Oxygen Delivery Method Room Air 09/27/23 12:02 BMI result Body Mass Index 33.9 Skin Other: Peeling skin over the legs and back. Erythematous rash over the forearms. No vesicles seen. Assessment & Plan Assessment & Plan (1) Photodermatitis: Code(s): L56.8 - Other specified acute skin changes due to ultraviolet radiation Plan: Sun protection to be used. Self-limiting illness. No further steroid creams needed. Medications: Discontinued prednisone Discontinued Reason: Patient Completed Course 60mg (3 tabs) daily for 3 days, then 40mg (2 tabs) daily for 3 days, then 20mg (1 tab) daily for 3 days 18 tabs 0RF cetirizine Discontinued Reason: Patient Completed Course 10 mg PO BID 60 tabs 0RF rash doxycycline hyclate Discontinued Reason: Patient Completed Course 100 mg PO BID 14 caps 0RF famotidine Discontinued Reason: Patient Completed Course 20 mg PO BID 14 tabs 0RF prednisone Discontinued Reason: Patient Completed Course 60mg (3 tabs) x 3 days, then 40mg (2 tabs) x 3 days, then 20mg (1 tab) x 3 days 18 tabs 0RF amoxicillin-pot clavulanate 875-125 mg Discontinued Reason: Patient Completed Course 1 tab PO BID 20 tabs 0RF chlorhexidine gluconate 0.12% (Peridex) Discontinued Reason: Patient Completed Course 15 mL buccal BID 118 mL 0RF triamcinolone acetonide 0.1% Discontinued Reason: Patient Completed Course 1 appl topical BID 2 weeks 80 grams 0RF Coding Level of Care Code Est Pt Level 3 (30005) Diagnoses Photodermatitis L56.8
[2023-09-27 12:02] VITALS: BP 178/92; PULSE 88; TEMP 36.8; O2SAT 98; BMI 33.9
== END 2023-09-27 14:30 | disposition home or self-care (01) ==
PROVIDERS: Visit Provider Internal Medicine
DX: L56.8 Other specified acute skin changes due to ultraviolet radiation (principal)
CPT/HCPCS: 99213

== ENCOUNTER 2024-07-20 15:49 | Emergency (ER) | payer MEDICAID, SELFPAY ==
[2024-07-20 15:55] VITALS: BP 142/71; BP 220/84; PULSE 112; PULSE 97; RESP 16; TEMP 37.1; O2SAT 93; O2SAT 95; BMI 32.1
[2024-07-20 16:05] VITALS: BP 186/82; PULSE 97; RESP 16; O2SAT 96
--- NOTE | 2024-07-20 16:15 | PC.NURSE ---
Addendum entered by Cony Kruse RN 07/20/24 17:46: Will monitor for until 1730 to maintain patient safety. Original Note: Patient is a 58 yo male [facility] of opiate use disorder on suboxone and in a program who admits to sniffing 2 bags of heroin. He did not overdose of need narcan. Alert and oriented, but a little drowsy. Respirations even and non-labored. Abdomen soft non-tender with positive bowel sounds. Positive pedal pulses with no edema..
--- NOTE | 2024-07-20 16:20 | ED.OVERDOSE ---
HPI - Overdose General Chief Complaint: General Medical Stated Complaint: OD Time Seen by Provider: 07/20/24 16:14 Source: patient and EMS Mode of arrival: EMS Limitations: no limitations History of Present Illness ED Provider: SOFY HPI Narrative: 58 yo male wtih PMH of opiate use disorder on suboxone and in a program who admits to sniffing 2 bags of heroin. He did not overdose of need narcan. He has no SI/HI. He was offered to go to custodial or come to the hospital. 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) Context: Accidental Overdose: wanted to get high Treatments Prior to Arrival: none Related Data Home Medications ?Medication ?Instructions ?Recorded ?Confirmed buprenorphine 8 mg-naloxone 2 mg 1 film sublingual BID 09/27/23 09/27/23 sublingual film (Suboxone) bupropion HCl 150 mg 24 hr tablet, 150 mg PO DAILY 09/27/23 09/27/23 extended release cetirizine 10 mg tablet 10 mg PO BID PRN 09/27/23 09/27/23 diphenhydramine HCl 25 mg tablet 50 mg PO BEDTIME PRN itch 09/27/23 09/27/23 (Banophen) triamcinolone acetonide 0.1 % appl topical 09/27/23 09/27/23 topical cream Previous Rx's ?Medication ?Instructions ?Recorded ibuprofen 600 mg tablet 600 mg PO Q8H PRN pain #20 tabs 06/10/23 Allergies Allergy/AdvReac Type Severity Reaction Status Date / Time Tide Detergent Allergy Intermediate Rash Uncoded 07/20/24 15:58 Review of Systems Review of Systems: Constitutional : No Fever, No Chills, No Fatigue ENT/Mouth : No sore throat, No Rhinorrhea Eyes: No Eye Pain, No Swelling, No Redness Cardiovascular : No Chest Pain, No SOB, No Dyspnea on Exertion Respiratory : No Cough, No Sputum Gastrointestinal : No Nausea, No Vomiting, No Diarrhea, No abdominal Pain Genitourinary : No Dysuria, No Urinary Frequency, No Hematuria, Musculoskeletal : No joint pain, No Myalgias, No Joint Swelling Skin : No Skin Lesions, No rash Neuro : No Weakness, No Numbness, No Dizziness, no Headache All other systems reviewed and are negative PMFSH Past Medical History Attestation statement: The following information was validated with the patient. Source: old records reviewed Medical History (Updated 07/20/24 @ 16:23 by Gayle Alegria DO) Opiate abuse, continuous Social History Social History Patient Tobacco Use Status: Current everyday Tobacco user Smoked in Last 30 Days: Yes Substance Use Type: Heroin Advance Directives: No Advance Directives Information Provided: No Physical Exam Vital Signs: Vital Signs: Last Vital Signs Temp 98.7 F 07/20/24 15:55 Pulse 97 07/20/24 16:05 Resp 16 07/20/24 16:05 BP 186/82 H 07/20/24 16:05 Pulse Ox 96 07/20/24 16:05 O2 Del Method Room Air 07/20/24 16:05 BMI result Body Mass Index 32.1 Appearance: Alert. Oriented X3. No acute distress. Eyes: Pupils equal, round and reactive to light. ENT: Pharynx normal. Neck: Normal inspection. Neck supple. CVS: Normal heart rate and rhythm. Pulses normal. Respiratory: No respiratory distress. Breath sounds normal. Abdomen: Soft and nontender. Skin: Skin warm and dry. Normal skin color. Normal skin turgor. Extremities: No lower extremity edema. No calf ttp Neuro: Oriented X 3. No motor deficit. No sensory deficit. CN2-12 intact Course Course Course Narrative: up and walking GCS 15 stable for DC Medical Decision Making Medical Decision Making MDM Narrative: 58 yo male wtih PMH of opiate use disorder on suboxone here s/p using heroin but no overdose and GCS 15 on arrival. He has no SI/HI he feels fine at this time stable for DC once he is monitored for 1 hour and no issues or overdose Differential Diagnosis Differential Diagnoses: The differential diagnosis associated with the presentation includes opiate use disorder Admission/Observation Consideration of admission/observation: Escalation of care including admission/observation considered no overdose stable for DC at this time Independent Historian Clinical information obtained from an independent historian. History obtained from or confirmed by: EMS Prescription Management I considered prescription management with: Other Discharge Plan Discharge Clinical Impression: Opiate use Patient Disposition: Home, Self-Care Instructions: Opioid Use Disorder (ED) Additional Instructions: Opiate use disorder You were seen in our Emergency Department today for treatment of opiate use disorder. You may have been dosed with medication for opiate use disorder (MOUD) in the form of suboxone or methadone. You may experience feeling some withdrawal symptoms and this is normal. The? dose in the Emergency Department is a starting dose and meant to be titrated up once you follow up with a clinic. Please do not feel discouraged, it is a process. The nurse has reviewed with you where to follow up and what information to bring with you, to continue treatment. You also may have been given naloxone (narcan) to take home with you. This medication is used to potentially treat opiate overdose. If you decide you want to stop or cut down on how much you?re using, you can call or walk into our outpatient Addiction Treatment office: [facility] (M-F 9am-5p) [address], [address] [phone] You may have been provided with safer injection?items, please take time to take care of YOU and your health. Use new supplies whenever possible to lessen the chances of infections and other illnesses.? ?If you need more supplies, please go [facility],? [address] [place] [address] OR you can call or text to coordinate delivery of safer supplies. You were also provided a list of several treatment providers in the area.? If you experience any worsening symptoms you cannot control please return to the ED or call 911. Please follow up at your next appointment. Things to look out for are fevers, chest pain, shortness of breath, severe pain, dizziness, fainting or any other concerns. Prescriptions: No Action ibuprofen 600 mg tablet 600 mg PO Q8H PRN (Reason: pain) Qty: 20 0RF buprenorphine-naloxone [Suboxone] 8-2 mg film 1 film sublingual BID triamcinolone acetonide 0.1 % cream topical cetirizine 10 mg tablet 10 mg PO BID PRN diphenhydramine HCl [Banophen] 25 mg tablet 50 mg PO BEDTIME PRN (Reason: itch) bupropion HCl 150 mg tablet extended release 24 hr 150 mg PO DAILY Print Language: French
[2024-07-20] MEDS: Naloxone HCl Nasal TAKE HOME 4 MG SPRAY 8 MG NOSTRILALT (17:40)
[2024-07-20 17:47] VITALS: BP 186/82; PULSE 97; RESP 16; TEMP 36.7; O2SAT 96
== END 2024-07-20 17:48 | disposition home or self-care (01) ==
PROVIDERS: Emergency Provider Emergency Medicine
DX: F11.90 Opioid use, unspecified, uncomplicated (principal)
CPT/HCPCS: 99284